=== PATIENT | male | born 1950 | race Caucasian/White ===

== ENCOUNTER 2020-09-14 12:10 | Emergency (ER) | payer BC, MEDICARE ==
[~2020-09-14] VITALS: Ht 182.9 cm; Wt 75.0 kg
[2020-09-14 12:27] VITALS: BP 151/83
--- NOTE | 2020-09-14 12:56 | RAD ---
INDICATION: Reason: injured while pushing a car / Spl. Instructions: / History: COMPARISON: None. IMPRESSION: Left shoulder: 3 views obtained. Degenerative changes the left shoulder, mild. No evidence of disloca tion. Linear lucency is seen within the scapula including at the acromion concerning for fracture. Left scapula: 3 views obtained. Linear lucency at the acromion is seen on this exam as well which cou ld be from nondisplaced fracture. Electronically signed by: Timbo Whalen MD (09/14/2020 12:53 PM) [id number]
--- NOTE | 2020-09-14 12:58 | PHYS DOC ---
Past History Past Medical History: No Pertinent History Past Surgical History: Other Additional Past Surgical Histo: HERNIA Alcohol Use: None General Adult EDM: Chief Complaint: SHOULDER INJURY HPI: HPI: Patient is a 69-year-old male who presents with left shoulder pain. Patient states that he was working on his car, was pushing on the muffler, when he heard a pop in his left shoulder. Patient states he only has pain with movement. Patient denies taking anything for pain prior to arrival. Patient denies any medical history or daily meds. Review of Systems: Review of Systems: Constitutional: Denies fever or chills Eyes: Denies change in visual acuity HENT: Denies nasal congestion or sore throat Respiratory: Denies cough or shortness of breath Cardiovascular: Denies chest pain or edema GI: Denies abdominal pain, nausea, vomiting, bloody stools or diarrhea : Denies dysuria Musculoskeletal: Reports left shoulder pain Integument: Denies rash Neurologic: Denies headache, focal weakness or sensory changes Endocrine: Denies polyuria or polydipsia Lymphatic: Denies swollen glands Psychiatric: Denies depression or anxiety Allergies: Allergies: Allergies Coded Allergies Type Severity Reaction Last Updated Verified No Known Drug Allergies 09/14/20 No Physical Exam: PE: Constitutional: Well developed, well nourished, no acute distress, non-toxic appearance. [] HENT: Normocephalic, atraumatic, bilateral external ears normal, oropharynx moist, no oral exudates, nose normal. [] Eyes: PERRLA, EOMI, conjunctiva normal, no discharge. [] Neck: Normal range of motion, no tenderness, supple, no stridor. [] Cardiovascular:Heart rate regular rhythm, no murmur [] Lungs & Thorax: Bilateral breath sounds clear to auscultation [] Abdomen: Bowel sounds normal, soft, no tenderness, no masses, no pulsatile sebastian s. [] Skin: Warm, dry, no erythema, no rash. [] Back: No tenderness, no CVA tenderness. [] Extremities: Left shoulder tenderness with movement, ROM intact, no edema. Neurologic: Alert and oriented X 3, normal motor function, normal sensory function, no focal deficits noted. [] Psychologic: Affect normal, judgement normal, mood normal. [] Current Patient Data: Vital Signs: Vital Signs Date Time Temp Pulse Resp B/P (MAP) Pulse Ox O2 Delivery O2 Flow Rate FiO2 09/14/20 12:27 97.1 77 18 151/83 (105) 93 Room Air EKG: EKG: [] Radiology/Procedures: Radiology/Procedures: []INDICATION: Reason: injured while pushing a car / Spl. Instructions: / History: COMPARISON: None. IMPRESSION: Left shoulder: 3 views obtained. Degenerative changes the left shoulder, mild. No evidence of dislocation. Linear lucency is seen within the scapula including at the acromion concerning for fracture. Left scapula: 3 views obtained. Linear lucency at the acromion is seen on this exam as well which could be from nondisplaced fracture. Electronically signed by: Timbo Whalen MD (09/14/2020 12:53 PM) DESKTOP- [id number] Heart Score: C/O Chest Pain: No Risk Factors: Risk Factors: DM, Current or recent (<one month) smoker, HTN, HLP, family history of CAD, obesity. Risk Scores: Score 0 - 3: 2.5% MACE over next 6 weeks - Discharge Home Score 4 - 6: 20.3% MACE over next 6 weeks - Admit for Clinical Observation Score 7 - 10: 72.7% MACE over next 6 weeks - Early Invasive Strategies Course & Med Decision Making: Course & Med Decision Making Pertinent Labs and Imaging studies reviewed. (See chart for details) [] Patient is being seen for left scapula pain. Patient reports tenderness over scapula with movement. Patient is denying anything for pain at this time. Left shoulder and scapula x-ray ordered to rule out fracture. Shoulder is negative for fracture. Linear lucency is seen within the scapula including at the acromion concerning for fracture. Patient instructed to contact [facility] orthopedics for further evaluation and management. Patient is also given a shoulder immobilizer. patient to apply ice to injured area. Patient can also take ibuprofen and Tylenol for discomfort. Patient sent home with a prescription for hydrocodone to help with pain control. Dragon Disclaimer: Robi Disclaimer: This electronic medical record was generated, in whole or in part, using a voice recognition dictation system. Departure Departure: Impression: Primary Impression: Fracture of scapula, acromial process Qualified Codes: S42.125A - Nondisplaced fracture of acromial process, left shoulder, initial encounter for closed fracture Disposition: HOME / SELF CARE / HOMELESS Condition: STABLE Referrals: HALEY MEIER MD (PCP) Patient Instructions: Scapular Fracture-Brief Additional Instructions: You were seen in the emergency room today for left shoulder pain. Your shoulder x-ray is negative for fracture. There is some concern for possible fracture within the scapula. Please contact [facility] orthopedics today for further evaluation and management. Please wear the shoulder sling that is provided. Also apply ice to injured area you can also take ibuprofen and Tylenol for discomfort. I am also sending you home with a prescription for hydrocodone to help with pain control. Please return to emergency room with worsening symptoms or concerns. [facility] [address] [place] [address] [facility] [address] EMERGENCY DEPARTMENT GENERAL DISCHARGE INSTRUCTIONS Thank you for coming to [facility] (ED) today and trusting us with you care. We trust that you had a positivie experience in our Emergency Department. If you wish to speak to the department management, you may call the director at [phone]. YOUR FOLLOW UP INSTRUCTIONS ARE FOLLOWS: 1. Do you have a private Doctor? If you do not have a private doctor, please ask for a resource list of physicians or clinics that may be able to assist you with follow up care. 2. The Emergency Physician has interpreted your x-rays. The X-Ray specialist will also review them. If there is a change in the findings, you will be notified in 48 hours when at all possible. 3. A lab test or culture has been done, your results will be reviewed and you will be notified if you need a change in treatment. ADDITIONAL INSTRUCTIONS AND INFORMATION: 1. Your care today has been supervised by a physician who is specially trained in emergency care. Many problems require more than one evaluation for a complete diagnosis and treatment. We recommend that you schedule your follow up appointment as recommended to ensure complete treatment of you illness or injury. If you are unable to obtain follow up care and continue to have a problem, or if your condition worsens, we recommend that you return to the ED. 2. We are not able to safely determine your condition over the phone nor are we able to give sound medical advice over the phone. For these safety reasons, if you call for medical advice we will ask you to come to the ED for further evaluation. 3. If you have any questions regarding these discharge instructions please call the ED at [phone]. SAFETY INFORMATION: In the interest of safety, wellness, and injury prevention; we encourage you to wear your sealbelt, if you smoke; quite smoking, and we encourage family to use a protective helmet for bicycling and other sporting events that present an increased risk for head injury. IF YOUR SYMPTOMS WORSEN OR NEW SYMPTOMS DEVELOP, OR YOU HAVE CONCERNS ABOUT YOUR CONDITION; OR IF YOUR CONDITION WORSENS WHILE YOU ARE WAITING FOR YOUR FOLLOW UP APPOINTMENT; EITHER CONTACT YOUR PRIMARY CARE DOCTOR, THE PHYSICIAN WHOSE NAME AND NUMBER YOU WERE GIVEN, OR RETURN TO THE ED IMMEDIATELY. Scripts Methylprednisolone (MEDROL) 4 Mg Tab.ds.pk 1 PKG PO UD for poison odessa, #1 PKG Prov: CHUNG CALVIN APRN 09/14/20 Hydrocodone Bit/Acetaminophen (HYDROCODONE-APAP 5-325 ) 1 Each Tablet 1 TAB PO PRN Q6HRS PRN for PAIN for 3 Days, #12 TAB 0 Refills Prov: CHUNG CALVIN APRN 09/14/20 CHUNG CALVIN APRN September 14, 2020 12:58
[2020-09-14] MEDS ORDERED: HYDR-2155 PO (13:32)
[2020-09-14] MEDS ORDERED: METH4TAB2 PO (13:51)
== END 2020-09-14 14:00 | disposition home or self-care (01) ==
LOC: ER 12:10
DX: S42.125A Nondisplaced fracture of acromial process, left shoulder, initial encounter for closed fracture (principal); Y93.89 Activity, other specified; Y92.89 Other specified places as the place of occurrence of the external cause; Y99.8 Other external cause status
CPT/HCPCS: 73010; 73030; 99283